=== PATIENT | male | born 1945 | race Caucasian/White ===

== ENCOUNTER 2018-10-10 12:07 | Day surgery (SDC) | payer OTHER ==
[~2018-10-10] VITALS: Ht 177.8 cm; Wt 79.4 kg
[~2018-10-10 12:07] MED LIST: ALLO300 PO; BUPR150ER PO; Bactrim Ds Tab1 EACH PO; CILO100; CLON1 PO; DURAGESIC TD; FAMC500 PO; Hydrocodone-Ap1 EA23 PO; Naprosyn500 MG PO; ONDA4 PO; TAMS.4ER PO; Zantac150 MG PO
[2018-10-10] MEDS ORDERED: Aspirin EC81 MG (13:05)
--- NOTE | 2018-10-10 15:07 | NUR ---
10/10/18 1507 Meggan Murry [facility] USING ORS.FLL LOGIN FOR ASSESSMENT EDIT.
== END 2018-10-10 14:20 | disposition home or self-care (01) ==
LOC: ORSCSDS 12:07
PROVIDERS: Internal Medicine Gastroenterology
PROC: 0DBE8ZX Excision of Large Intestine, Via Natural or Artificial Opening Endoscopic, Diagnostic (ICD-10-PCS; principal; 2018-10-10 13:30)
PROC: 0DBM8ZX Excision of Descending Colon, Via Natural or Artificial Opening Endoscopic, Diagnostic (ICD-10-PCS; principal; 2018-10-10 13:30)
DX: Z12.11 Encounter for screening for malignant neoplasm of colon (principal); Z86.010 Personal history of colon polyps; D12.4 Benign neoplasm of descending colon; K63.5 Polyp of colon; K57.30 Diverticulosis of large intestine without perforation or abscess without bleeding; Z87.891 Personal history of nicotine dependence; Z79.899 Other long term (current) drug therapy
CPT/HCPCS: 88305; J7120

== ENCOUNTER → 2018-10-18 | Outpatient (CLI) | payer OTHER ==
[~2018-10-18] MED LIST changes: +Aspirin EC81 MG
== END | disposition home or self-care (01) ==
LOC: LAB SHORT 08:30 → PLD 08:30
DX: C44.311 Basal cell carcinoma of skin of nose (principal)
CPT/HCPCS: 88305

== ENCOUNTER 2018-11-24 15:03 | Emergency (ER) | payer OTHER ==
[~2018-11-24] VITALS: Ht 165.1 cm; Wt 79.4 kg
[2018-11-24] MEDS ORDERED: HYDR1TAB94 PO (16:56)
[2018-11-24] MEDS ORDERED: MINO50 PO (16:56)
[2018-11-24] MEDS ORDERED: IBUP400 PO (16:56)
== END 2018-11-24 17:13 | disposition home or self-care (01) ==
LOC: ER 15:03
DX: S41.112A Laceration without foreign body of left upper arm, initial encounter (principal); S40.012A Contusion of left shoulder, initial encounter; Z88.0 Allergy status to penicillin; Z87.891 Personal history of nicotine dependence; W20.8XXA Other cause of strike by thrown, projected or falling object, initial encounter
CPT/HCPCS: 12032; 99282-25

== ENCOUNTER → 2019-07-27 | Outpatient (CLI) | payer OTHER ==
[~2019-07-27] MED LIST changes: +HYDR1TAB94 PO; +IBUP400 PO; +MINO50 PO
== END | disposition home or self-care (01) ==
LOC: LAB SHORT 07:29 → PLD 07:29
DX: D48.5 Neoplasm of uncertain behavior of skin (principal)
CPT/HCPCS: 88305

== ENCOUNTER → 2021-10-08 | Outpatient (CLI) | payer OTHER | END | disposition home or self-care (01) | LOC: LAB SHORT 11:19 | DX: D04.4 Carcinoma in situ of skin of scalp and neck (principal) | CPT/HCPCS: 88305 ==

== ENCOUNTER → 2022-03-17 | Outpatient (CLI) | payer OTHER ==
[2022-03-17 15:28] LABS: U Amphetamine Screen Not Detected; U Barbituate Screen Not Detected; U Benzodiazapine Screen Not Detected; U Buprenorphine Screen Not Detected; U Cannabinoids Screen Not Detected; U Cocaine Screen Not Detected; U Methadone Screen Not Detected; U Methamphetamine Screen Not Detected; U Opiates Screen Not Detected; U Oxycodone Screen Not Detected; U Phencyclidine Screen Not Detected; U Propoxyphene Screen Not Detected
== END | disposition home or self-care (01) ==
LOC: LAB SHORT 08:24 → LAB 08:24
PROVIDERS: Internal Medicine Hematology & Oncology
DX: Z51.81 Encounter for therapeutic drug level monitoring (principal); Z79.899 Other long term (current) drug therapy

== ENCOUNTER → 2022-07-24 | Outpatient (CLI) | payer OTHER ==
[2022-07-24 19:00] LABS: U Amphetamine Screen Not Detected; U Barbituate Screen Not Detected; U Benzodiazapine Screen Not Detected; U Buprenorphine Screen Not Detected; U Cannabinoids Screen Not Detected; U Cocaine Screen Not Detected; U Methadone Screen Not Detected; U Methamphetamine Screen Not Detected; U Opiates Screen Not Detected; U Oxycodone Screen Not Detected; U Phencyclidine Screen Not Detected; U Propoxyphene Screen Not Detected
[2022-07-24 19:55] LABS: Albumin, Blood 3.5 g/dL (3.4-5.0); Albumin/Globulin Ratio 1.3 (0.8-1.8); Bilirubin, Total 0.9 mg/dL (0.1-1.0); Bun/Creatinine Ratio 16.3 (12.0-20.0); Calcium, Blood 8.5 mg/dL (8.5-10.1); Creatinine, Blood 0.86 mg/dL (0.60-1.20); Globulin, Blood 2.6 g/dL (2.2-4.0); Potassium, Blood 4.4 mmol/L (3.5-5.5); Total Protein, Blood 6.1 g/dL (6.4-8.2)
== END | disposition home or self-care (01) ==
LOC: LAB SHORT 11:22
PROVIDERS: Internal Medicine Hematology & Oncology
DX: C85.95 Non-Hodgkin lymphoma, unspecified, lymph nodes of inguinal region and lower limb (principal); Z79.899 Other long term (current) drug therapy
CPT/HCPCS: 80053

== ENCOUNTER → 2022-09-24 | Outpatient (CLI) | payer OTHER ==
[2022-09-24 18:17] LABS: U Amphetamine Screen Not Detected; U Methamphetamine Screen Not Detected
[2022-09-24 18:18] LABS: U Barbituate Screen Not Detected; U Benzodiazapine Screen Not Detected; U Buprenorphine Screen Not Detected; U Cannabinoids Screen Not Detected; U Cocaine Screen Not Detected; U Methadone Screen Not Detected; U Opiates Screen Not Detected; U Oxycodone Screen Not Detected; U Phencyclidine Screen Not Detected; U Propoxyphene Screen Not Detected
== END | disposition home or self-care (01) ==
LOC: LAB SHORT 11:22
PROVIDERS: Internal Medicine Hematology & Oncology
DX: Z51.81 Encounter for therapeutic drug level monitoring (principal); Z79.899 Other long term (current) drug therapy

== ENCOUNTER → 2022-12-03 | Outpatient (CLI) | payer OTHER | END | disposition home or self-care (01) | LOC: LAB 12:13 → LAB SHORT 12:13 | DX: E53.8 Deficiency of other specified B group vitamins (principal) | CPT/HCPCS: 82607; 82746 ==

== ENCOUNTER → 2022-12-03 | Outpatient (CLI) | payer OTHER ==
[2022-12-03 14:10] LABS: U Amphetamine Screen Not Detected; U Barbituate Screen Not Detected; U Benzodiazapine Screen Not Detected; U Buprenorphine Screen Not Detected; U Cannabinoids Screen Not Detected; U Cocaine Screen Not Detected; U Methadone Screen Not Detected; U Methamphetamine Screen Not Detected; U Opiates Screen Not Detected; U Oxycodone Screen Not Detected; U Phencyclidine Screen Not Detected; U Propoxyphene Screen Not Detected
== END | disposition home or self-care (01) ==
LOC: LAB 11:44 → LAB SHORT 11:44
PROVIDERS: Internal Medicine Hematology & Oncology
DX: Z51.81 Encounter for therapeutic drug level monitoring (principal); Z79.899 Other long term (current) drug therapy

== ENCOUNTER → 2023-01-07 | Outpatient (CLI) | payer OTHER | END | disposition home or self-care (01) | LOC: LAB SHORT 11:23 → LAB 11:23 | DX: L57.0 Actinic keratosis (principal) | CPT/HCPCS: 88305 ==